=== PATIENT | female | born 1995 | race Asian ===

== ENCOUNTER 2017-08-19 20:37 | Emergency (ER) | payer SELFPAY ==
[~2017-08-19] VITALS: Ht 154.9 cm; Wt 49.0 kg
[2017-08-19 23:05] VITALS: BP 96/64
== END 2017-08-19 23:05 | disposition left against medical advice (07) ==
LOC: ED 20:37
DX: Z53.21 Procedure and treatment not carried out due to patient leaving prior to being seen by health care provider (principal)

== ENCOUNTER 2017-12-17 22:46 | Emergency (ER) | payer BC ==
[~2017-12-17] VITALS: Ht 154.9 cm; Wt 59.4 kg
[2017-12-17 22:57] VITALS: Ht 154.9 cm; Wt 59.4 kg
[2017-12-17 23:50] LABS: CALCIUM 8.2 mg/dL (8.5-10.1); CARBON DIOXIDE 23.2 mmol/L (21-32); CHLORIDE SERUM 106 mmol/L (98-107); CREATININE SERUM 0.5 mg/dL (0.6-1.0); GFR1 > 60 mL/min; GLUCOSE SERUM 98 mg/dL (74-106); POTASSIUM SERUM 3.7 mmol/L (3.5-5.1); SODIUM SERUM 141 mmol/L (136-145)
[2017-12-18 01:35] VITALS: BP 105/72
== END 2017-12-18 01:35 | disposition home or self-care (01) ==
LOC: ED 22:46
PROVIDERS: Emergency Medicine
DX: O23.43 Unspecified infection of urinary tract in pregnancy, third trimester (principal); O20.0 Threatened abortion; Z3A.24 24 weeks gestation of pregnancy
CPT/HCPCS: Q0092

== ENCOUNTER 2018-06-04 20:15 | Emergency (ER) | payer BC ==
[~2018-06-04] VITALS: Ht 154.9 cm; Wt 54.9 kg
[2018-06-04 20:19] VITALS: Ht 154.9 cm; Wt 54.9 kg
[2018-06-04 21:27] LABS: BASOPHIL % 0.6 % (0-2); PLATELET COUNT 270 x10^3mcL (130-400); RED CELL DISTRIBUTION WIDTH 13.4 % (11.5-14.5)
[2018-06-04 21:32] LABS: CALCIUM 10.2 mg/dL (8.5-10.1); CHLORIDE SERUM 98 mmol/L (98-107); CREATININE SERUM 0.8 mg/dL (0.6-1.0); GFR1 > 60 mL/min; GLUCOSE SERUM 90 mg/dL (74-106); POTASSIUM SERUM 3.3 mmol/L (3.5-5.1); SODIUM SERUM 137 mmol/L (136-145)
[2018-06-04 21:37] LABS: ALBUMIN 4.4 g/dL (3.4-5.0); ALKALINE PHOSPHATASE 128 U/L (46-116); ALT/SGPT 49 U/L (14-59); AST/SGOT 27 U/L (15-37); BILIRUBIN TOTAL 0.3 mg/dL (0.20-1.00); LIPASE 172 IU/L (73-393)
[2018-06-04 21:44] LABS: TOTAL PROTEIN, SERUM 8.5 g/dL (6.4-8.2)
[2018-06-05 00:24] VITALS: BP 98/64
== END 2018-06-05 00:24 | disposition home or self-care (01) ==
LOC: ED 20:15
PROVIDERS: Emergency Medicine
DX: K52.9 Noninfective gastroenteritis and colitis, unspecified (principal)
CPT/HCPCS: 87046; 87046-59; J1885; J2405; J7030